=== PATIENT | male | born 1960 | race American Indian/Alaskan Native ===

== ENCOUNTER 2019-06-08 10:40 | Day surgery (SDC) | payer OTHER ==
[~2019-06-08] VITALS: Ht 177.8 cm; Wt 97.1 kg
--- NOTE | 2019-06-08 12:37 | NUR ---
06/08/19 1237 Luna Lucia PT UPDATED MULTIPLE TIMES REGARDING DELAY IN INTO OR TIME DUE TO DR WORKING ON PREVIOUS CASE. PT UNDERSTANDING. CALL LIGHT WITHIN REACH.
--- NOTE | 2019-06-08 13:29 | NUR ---
06/08/19 9695 Vita Demarco LATE ENTRY-DISCUSSION WITH DR MOONEY AT THE BEGINNING OF SEDATION THAT DUE TO PT'S DRINKING DAILY HE MAY BE HARDER TO GET HIM TO SLEEP. DR MOONEY OK'S LARGER BOLUS AND GOING OUT OF PROTOCOL TO GET PATIENT TO SLEEP.
== END 2019-06-08 14:10 | disposition home or self-care (01) ==
LOC: ORSCSDS 10:40
PROVIDERS: Internal Medicine Gastroenterology
PROC: 0DBP8ZX Excision of Rectum, Via Natural or Artificial Opening Endoscopic, Diagnostic (ICD-10-PCS; principal; 2019-06-08 12:00)
PROC: 0DBK8ZX Excision of Ascending Colon, Via Natural or Artificial Opening Endoscopic, Diagnostic (ICD-10-PCS; principal; 2019-06-08 12:00)
PROC: 0DBN8ZX Excision of Sigmoid Colon, Via Natural or Artificial Opening Endoscopic, Diagnostic (ICD-10-PCS; principal; 2019-06-08 12:00)
DX: Z12.11 Encounter for screening for malignant neoplasm of colon (principal); D12.2 Benign neoplasm of ascending colon; K63.5 Polyp of colon; K62.1 Rectal polyp; K64.8 Other hemorrhoids; F17.220 Nicotine dependence, chewing tobacco, uncomplicated
CPT/HCPCS: 88305; J2704; J7120